=== PATIENT | male | born 1960 | race Caucasian/White ===

== ENCOUNTER 2016-11-26 09:01 | Emergency (ER) | payer OTHER ==
--- NOTE | 2016-12-01 16:13 | ER ---
ADMIT: 11/26/2016 RM/LOC: ER [facility] MR#: [id number] [address] [id number] [address]ITO JULES [address] [place] [address] [place] [address] Emergency Room Report SEX: M AGE: 56 : 1960 DATE: 11/26/2016 CHIEF COMPLAINT: Swollen hand with blister. HISTORY OF PRESENT ILLNESS: This is a 56-year-old male who was just at the horse races yesterday. He is here out of town. He is not sure what he would have got in to, but the hand is swollen also with some blisters on the third, fourth, and fifth fingers. I am giving him a Decadron shot here in the emergency room. Having him do Benadryl at home for itching and follow up with PCP if worsens. CLINICAL IMPRESSION: Contact dermatitis. RUSS Tay / Derrick Morrow MD / phanil JOB #: [id number] CC: Derrick Morrow MD, Attending Physician Daniel Caal MD, Family Physician
== END 2016-11-26 09:43 | disposition home or self-care (01) ==
LOC: ER 09:01
DX: L25.9 Unspecified contact dermatitis, unspecified cause (principal); I10 Essential (primary) hypertension; Z79.899 Other long term (current) drug therapy